=== PATIENT | male | born 1975 | race Caucasian/White ===

== ENCOUNTER 2016-12-29 16:07 | Emergency (ER) | payer BC ==
[~2016-12-29] VITALS: Ht 185.4 cm; Wt 88.6 kg
[2016-12-29 16:09] VITALS: TEMP 98.9
[2016-12-29 17:29] VITALS: BP 133/100; PULSE 54
== END 2016-12-29 17:28 | disposition home or self-care (01) ==
LOC: COL.ER 16:07
DX: S43.401A Unspecified sprain of right shoulder joint, initial encounter (principal); W19.XXXA Unspecified fall, initial encounter; Y92.34 Swimming pool (public) as the place of occurrence of the external cause